=== PATIENT | female | born 1995 | race Caucasian/White ===

== ENCOUNTER 2017-04-13 15:12 | Emergency (ER) | payer OTHER, BC ==
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
[2017-04-13] MEDS ORDERED: LORAZEPAM 1 MG TABLET PO ONE (16:15)
[2017-04-13] MEDS ORDERED: IBUPROFEN 600 MG TABLET PO ONE (16:22)
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
[2017-04-13] MEDS ORDERED: HYDROCODONE/ACETAMINOPHEN 5-325 MG TABLET PO ONE (17:34)
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
[2017-04-13 19:05] VITALS: BP 129/66
== END 2017-04-13 19:05 | disposition home or self-care (01) ==
LOC: ER 15:12
DX: S70.12XA Contusion of left thigh, initial encounter (principal); S89.92XA Unspecified injury of left lower leg, initial encounter; S49.92XA Unspecified injury of left shoulder and upper arm, initial encounter; R20.2 Paresthesia of skin; V89.2XXA Person injured in unspecified motor-vehicle accident, traffic, initial encounter
CPT/HCPCS: 99283